=== PATIENT | male | born 1990 | race Caucasian/White ===

== ENCOUNTER 2018-10-01 21:15 | Emergency (ER) | payer SELFPAY ==
[~2018-10-01] VITALS: Ht 182.9 cm; Wt 88.5 kg
[~2018-10-01 21:15] MED LIST: VALIUM10 MG PO; XANAX0.5 MG PO
--- OUTSIDE RECORDS SUMMARY | 2018-10-01 21:18 | XMS ---
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 Natali has no Care Guidelines for this patient. EMyah VISIT COUNT (12 MO.) 2 [facility] TOTAL 2 NOTE: Visits indicate total known visits. ED/UCC VISIT TRACKING (12 MO.) [facility] COMPLAINT: - MEDICAL CLEARANCE 06/23/2018 16:[address] [facility] [place] TYPE: Emergency COMPLAINT: - MEDICAL CLEARANCE DIAGNOSES: - Nicotine dependence, unspecified, uncomplicated - Suicidal ideations INPATIENT VISIT TRACKING (12 MO.) No inpatient visits to display in this time frame [email or web address]
--- NOTE | 2018-10-02 07:57 | EKG ---
[facility] [address] [place] [address] Signed Normal sinus rhythm with sinus arrhythmia Normal ECG No previous ECGs available Confirmed by CHANDANA ORTIZ MD ([id number]) on 10/02/2018 7:57:37 AM Electronically Signed By: CHANDANA ORTIZ MD 10/02/18 0757 PATIENT NAME: NAYA NEUMANN Electrocardiogram DATE OF : [birth year] PHYSICIAN: CHANDANA ORTIZ MD REPORT #: [id number] REPORT IS CONFIDENTIAL AND NOT TO BE RELEASED WITHOUT AUTHORIZATION
== END 2018-10-02 02:00 | disposition home or self-care (01) ==
LOC: ED 21:15
DX: Z00.8 Encounter for other general examination (principal); F17.200 Nicotine dependence, unspecified, uncomplicated
CPT/HCPCS: 36415; 80053; 80176; 81001; 84443; 85025; 93005; 93010; 99285-25; G0480

== ENCOUNTER 2019-03-04 00:36 | Emergency (ER) | payer SELFPAY ==
[~2019-03-04] VITALS: Ht 182.9 cm; Wt 88.5 kg
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
== END 2019-03-04 05:18 | disposition home or self-care (01) ==
LOC: ED 00:36
DX: F10.129 Alcohol abuse with intoxication, unspecified (principal); Y90.5 Blood alcohol level of 100-119 mg/100 ml; F32.9 Major depressive disorder, single episode, unspecified; F17.200 Nicotine dependence, unspecified, uncomplicated
CPT/HCPCS: 36415; 80053; 80176; 81001; 84443; 85025; 99284; G0480

== ENCOUNTER 2019-10-31 16:51 | Emergency (ER) | payer SELFPAY ==
[~2019-10-31] VITALS: Ht 182.9 cm; Wt 88.5 kg
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
== END 2019-10-31 18:05 | disposition left against medical advice (07) ==
LOC: ED 16:51
DX: S61.012A Laceration without foreign body of left thumb without damage to nail, initial encounter (principal); F10.10 Alcohol abuse, uncomplicated; F12.90 Cannabis use, unspecified, uncomplicated; F32.9 Major depressive disorder, single episode, unspecified; F17.200 Nicotine dependence, unspecified, uncomplicated; X58.XXXA Exposure to other specified factors, initial encounter
CPT/HCPCS: 12001; 73140; 90471; 90715; 99283-25

== ENCOUNTER 2019-11-06 17:50 | Emergency (ER) | payer SELFPAY ==
[~2019-11-06] VITALS: Ht 182.9 cm; Wt 95.2 kg
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
--- NOTE | 2019-11-07 12:27 | EKG ---
[facility] [address] [facility] [place] [address] Signed Sinus rhythm with premature supraventricular complexes Otherwise normal ECG When compared with ECG of 01-OCT-2018 22:37, premature supraventricular complexes are now present Vent. rate has decreased BY 36 BPM Confirmed by PENNY SUTHERLAND DO ([id number]) on 11/07/2019 12:26:42 PM Electronically Signed By: PENNY SUTHERLAND DO 11/07/19 1227 PATIENT NAME: NAYA NEUMANNO Electrocardiogram DATE OF : [birth year] PHYSICIAN: PENNY SUTHERLAND DO REPORT #: [id number] REPORT IS CONFIDENTIAL AND NOT TO BE RELEASED WITHOUT AUTHORIZATION
== END 2019-11-06 20:59 | disposition home or self-care (01) ==
LOC: ED 17:50
DX: F32.9 Major depressive disorder, single episode, unspecified (principal); F10.10 Alcohol abuse, uncomplicated; F12.90 Cannabis use, unspecified, uncomplicated; F17.200 Nicotine dependence, unspecified, uncomplicated
CPT/HCPCS: 80053; 80176; 81001; 84443; 85025; 93005; 93010; 96372; 99284-25; G0480; J2060

== ENCOUNTER 2019-12-02 17:40 | Inpatient (IN) | payer OTHER ==
[~2019-12-02] VITALS: Ht 182.9 cm; Wt 95.2 kg
--- OUTSIDE RECORDS SUMMARY | 2019-12-02 17:42 | XMS ---
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 Details: AMA Elopement at [facility] 06/23/2018 16:53 - Other Details: PATIENT LEFT AMA CRITERIA MET - Group Notification - [facility] - Has Care Guidelines - [facility] - 2 Visits in 30 Days CARE PROVIDERS There are no care providers on record at this time. Natali has no Care Guidelines for this patient. Care History Medical/Surgical 03/04/2019 [facility] - IF PATIENT IS SEEN IN THE ED- WOULD LIKE HELP/SERVICES FOR ALCOHOL INTOXICATION. - PLEASE REQUEST IF PATIENT IS OKAY WITH [facility] TO COME AND DO AN ASSESSMENT FOR SERVICES. (THEY WILL DO AN ASSESSMENT IN THE ED) - [facility] CONTACT # [phone]. - PLEASE CONTACT [facility] AT [phone]. E.D. VISIT COUNT (12 MO.) 5 [facility]. TOTAL 5 NOTE: Visits indicate total known visits. ED/UCC VISIT TRACKING (12 MO.) 12/02/2019 17:40 [facility] [place] TYPE: Emergency COMPLAINT: - ALOC 11/06/2019 17:51 [facility] [place] TYPE: Emergency COMPLAINT: - MEDICAL CLEARANCE DIAGNOSES: - Cannabis use, unspecified, uncomplicated - Alcohol abuse, uncomplicated - Major depressive disorder, single episode, unspecified - Major depressive disorder, single episode, unspecified - Nicotine dependence, unspecified, uncomplicated 10/31/2019 16:52 [facility] [place] TYPE: Emergency [...] visits to display in this time frame [id number]
--- NOTE | 2019-12-02 21:00 | NUR ---
Patient arrives to unit via stretcher. Ventilator in place. Vent settings at 21% FiO2, VT: 510, PEEP: 8.0. ET tube measured at 26 cm at the teeth. NG tube and umaña catheter in place. Patient sedated. Transferred to hospital bed with nursing staff, patient's lines and ET tube protected by staff. Vitals taken, assessment complete. Propofol gtt infusing at 50 mcg/kg/min. Medications given (see MAR). Rass score of -2. NS bolus infusing.
--- NOTE | 2019-12-02 22:15 | NUR ---
Patient sedated in bed, ventilator in place. RASS of -3. Propofol gtt at 60mcg/kg/min. BP of 87/44 (55), HR 130. Propofol gtt titrated to 50mcg/kg/min. BP now 93/51 (61), HR 130. IV fluids running at 200 mls/hr.
--- NOTE | 2019-12-03 | NUR ---
RT in room with patient. ET tube ramirez replaced, 26 cm at the teeth. SpO2 of 98% on ventilator. Settings at FiO2 of 21%, VT: 510, PEEP: 8.0, RR of 16. Current RR of 20. Propofol gtt infusing at 50 mcg/kg/min. BP of 124/60, HR of 130. Patient restless in bed, movement in bilateral arms. Propofol gtt increased to 60 mcg/kg/min. 2mg push of versed given. Patient stops restless behavior. Restraints removed, ROM performed. Patient repositioned in bed. Restraints resumed. Oral care provided. Bloody sputum and emesis suctioned from patients airway. Cloudy urine noted draining from umaña catheter. NG tube in place, draining on LIWS.
--- NOTE | 2019-12-03 00:36 | NUR ---
Propofol gtt titrated to 45 mcg/kg/min due to BP of 90/51. HR in the 120's. SpO2 of 98% on ventilator. Settings at 21% FiO2, VT: 510, PEEP: 8.0, and ETCO2 of 33. Patient sedated, no restless activity noted. Fluids infusing at 200 mls/hr.
--- NOTE | 2019-12-03 02:00 | NUR ---
Patient restless in bed on ventilator. Settings at 21% FiO2, PEEP of 8, PIP of 19, ETCO2 of 30, SpO2 of 98%, RR of 20. Patient pulling against restraints, lifting right leg, and turning head side to side. ET tube in place, 26 cm at the teeth. 2mg push of versed given. 1405 - Patient continues to be restless. 2mg of versed given. 1415 - Patient continues to be restless. 2mg of versed given.
--- NOTE | 2019-12-03 02:30 | NUR ---
Dr. Varghese called and notified of patient's increasing restlessness. Propofol gtt at 35 mcg/kg/min. Orders acknowledged. Dr. Varghese on way to unit to assess patient.
--- NOTE | 2019-12-03 03:00 | NUR ---
Dr. Varghese in room with RT to extubate patient. Patient is extubated, all vital signs within normal limits. Patient is breathing on own, coughing and alert.
--- NOTE | 2019-12-03 03:32 | NUR ---
Patient agitated post-extubation. 2mg ativan given. Security in room talking with patient to de-escalate. Patient laying in bed having conversation with security.
--- NOTE | 2019-12-03 03:41 | NUR ---
Patient's mom in room with patient. Security in room as well. Patient agitated. Patient screaming and cursing at mother. Security talking with patient in an attempt to de-escalate.
--- NOTE | 2019-12-03 04:00 | NUR ---
PATIENT AGITATED AND YELLING LOUDING. SECURITY AND PATIENT'S MOTHER AT BEDSIDE. RN INFORMED PATIENT OF OTHER ILL PATIENT'S IN THE UNIT AND NO TOLERANCE FOR THE SCREAMING. PATIENT BECAME THRATENING TOWARD HIS MOTHER AND SECURITY PHYSICALLY HAD TO REMOVE THE PATIENT'S HANDS FROM HIS MOTHER'S ARMS. THE PATIENT TOLD THIS RN AND THE MULTIMEDIA AUTHORING SPECIALIST THAT WE ARE "AT THE TOP OF HIS SUICIDE LIST". PATIENT'S MOTHER EXPLAINED THIS IS A LIST OF REASONS OR PEOPLE TO BLAME FOR HIS SUICIDE. PATIENT THREATENS HARM TO THE MULTIMEDIA AUTHORING SPECIALIST.
--- NOTE | 2019-12-03 04:15 | NUR ---
DR. KONG NOTIFIED OF PATIENT'S SUICIDAL THOUGHTS. [employer] CALLED. ATIVAN ORDER DC'D, VALUIM ORDERED.
--- NOTE | 2019-12-03 04:30 | NUR ---
PATIENT CONTINUES TO BE AGITATED. SECURITY REMAINS AT THE BEDSIDE, DOES THE PATIENT'S MOTHER. PRN VALIUM GIVEN. PATIENT REQUEST FETANYL OR MORPHINE. PATIENT REPORTS "EXCRUCIATING" PAIN IN HIS ARMS/SHOULDERS/ETC. OFFERED THE PATIENT TYLENOL WHICH HE REFUSED. EXPLAINED RESTRICTIONS ON NARCOTICS. PATIENT IS NOT UNDERSTANDING AND USING VULGAR LANGUAGE TOWARDS STAFF.
--- NOTE | 2019-12-03 05:31 | NUR ---
[facility] IN TO SEE PATIENT
--- NOTE | 2019-12-03 06:02 | NUR ---
MARIE REQUESTING HIS MOTHER BE IN ROM FOR EVALUATION, [facility] STAFF KRISTY STATES ASSESSMENT NEEDS TO BE WITHOUT HIS MOTHER. PATIENT IS DISTRAUGHT. PATIENT'S MOTHER LEAVING TO GO HOME AND RETURN WHEN ASSESSMENT IS OVER.
--- NOTE | 2019-12-03 06:47 | NUR ---
PATIENT UP OUT OF BED. BEDDING CHANGED. PATIENT PROVIDED WITH PRN VALIUM FOR ONGOING ANXIETY. DISCUSSED PATIENT'S HOLD FROM [employer] WITH . NEW ORDERS RECEIVED. VERIFY VIA REPEAT BACK.
--- NOTE | 2019-12-03 06:53 | NUR ---
PATIENT MORE CALM, DISCUSSING MENTAL HEALTH TREATMENT WITH FRANCIS AND HIS MOTHER.
--- NOTE | 2019-12-03 07:30 | NUR ---
Consult request by Rn from [facility]. He is on a [employer] hold and was intubated last night and then extubated during the night. Pt states he drank most of a bottle of whisky and lost several hours. Woke up intubated and felt he could not breath. Denies suicidal ideation. States he has been drinking for a long period. Does not want assist with finding a pcp or getting on the OHP. Did agree tp Peer to Peer support from [facility] as his friend is currently taking class with them. Informed I will contact [facility] for Peer to Peer support to call or see him. Pt agreees to this. NOtified by Rn after I returned to my office pt would like assistance with OHP. Called and spoke with Brandie and she will assist pt.
--- NOTE | 2019-12-03 07:45 | NUR ---
REPORT RECEIVED FROM DANY HERNANDEZ. PT UP TO EDGE OF BED TO USE URINAL. MOTHER AND FORMING FIXER AT BEDSIDE. 1:1 MONITORING CONTINUES.
--- NOTE | 2019-12-03 08:10 | NUR ---
MORNING ASSESSMENT DUE. PT RESTING IN BED. PT CALM AND COOPERATIVE WITH CARES. PT ANSWERING QUESTIONS AT THIS TIME. PT REPORTS 9/10 PAIN "EVERYWHERE." PT REPORTS "I CAN USUALLY DRINK A WHOLE BOTTLE OF ALCOHOL AND THIS DOESN'T HAPPEN." "USUALLY I'M A HAPPY DRUNK. 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 I WRITE IT AND HE SENDS ME $600." CASE MANAGEMENT TO BEDSIDE TO VISIT WITH PT. PT ANSWERING QUESTIONS COOPERATIVELY.
--- NOTE | 2019-12-03 08:52 | NUR ---
PT REQUESTS "THAT MEDICATION IN MY IV." PT RESTLESS AND CONTINUES TO HAVE DILUSIONAL THINKING. SEE MAR FOR MEDICATION GIVEN. PT AGREES TO TALK WITH CASE MANAGEMENT ABOUT OHP. CASE MANAGMENT CALLED. MOTHER AND SECURITY AT BEDSIDE. PT REMAINS 1:1 OBSERVATION.
--- NOTE | 2019-12-03 09:00 | NUR ---
PUMP ALARMING, INFUSION COMPLETE. IV SALINE LOCKED PER MD ORDER. SECURITY AT BEDSIDE. NO ADDITIONAL REQUESTS OR COMPLAINTS AT THIS TIME.
--- NOTE | 2019-12-03 09:06 | NUR ---
BREAKFAST ARRIVED. PT SITTING ON EDGE OF BED. [employer] PAPERWORK GIVEN TO FOR REVIEW, SIGNED, AND FAXED TO [employer]. PT VISITING WITH HIS MOTHER, COOPERATIVE AT THIS TIME.
--- NOTE | 2019-12-03 10:00 | NUR ---
PT RESTING IN BED TALKING WITH THREAD MACHINE OPERATOR. COOPERATIVE AT THIS TIME.CALL LIGHT WITHIN REACH. NO ADDITIONAL REQUESTS OR COMPLAINTS.
--- NOTE | 2019-12-03 10:48 | NUR ---
PT REQUESTS TO TALK TO HIS NURSE. THIS RN TO BEDSIDE. PT REPORTS "PAIN EVERYWHERE." PT RATES PAIN AT 9/10. PT REPORTS "I JUST WANT TO FEEL SAD RIGHT NOW BECAUSE I SAID DISCUSTING VIAL THINGS TO WOMEN LAST NIGHT." PT ANXIOUS AND RESTLESS. PT STATES "I THINK THIS PLACE MIGHT BE HAUNTED." PT DENIES SEEING THINGS OR FEELING FORIGN SENSATIONS. VITALS TAKEN. PT REMAINS 1:1 WITH CARES AT THIS TIME. SEE MAR FOR MEDICATION GIVEN. BED RAILS UP. SECURITEY AT BEDSIDE.
--- NOTE | 2019-12-03 11:09 | EKG ---
[facility] [address] [place] [address] Signed Poor data quality, interpretation may be adversely affected Sinus tachycardia Abnormal ECG When compared with ECG of 06-NOV-2019 18:11, Vent. rate has increased BY 44 BPM Confirmed by GABRIELLE KONG MD ([id number]) on 12/03/2019 11:09:40 AM Electronically Signed By: GABRIELLE KONG MD 12/03/19 1109 PATIENT NAME: NAYA NEUMANN Electrocardiogram DATE OF : [birth year] PHYSICIAN: GABRIELLE KONG MD REPORT #: [id number] REPORT IS CONFIDENTIAL AND NOT TO BE RELEASED WITHOUT AUTHORIZATION
--- NOTE | 2019-12-03 12:11 | NUR ---
NOON ASSESSMENT DUE. PT REPORTS 9/10 PAIN "EVERYWHERE, LIKE MY BACK AND HEAD." PT ASKED WHAT INTERVENTIONS NORMALLY HELP HIS PAIN. PT STATES "WELL TELL ME WHAT YOU WILL GIVE ME AND I'LL SEE." PT OFFERED TYLENOL. PT DECLINES. PT ENCOURAGED TO GET UP TO CHAIR. SBA UP TO CHAIR. PT RESTLESS, GETS UP AND IS REMAING HIS BED. ASSESSMENT DONE. LUNG SOUNDS CLEAR. PT DENIES NAUSEA. CIWA SCORE OF 13. PT CONTINUES TO HAVE DILUSIONAL THINKING BUT IS COOPERATIVE WITH CARES AT THIS TIME. PT SITS DOWN WITH INSTRUCTION, PT EATING LUNCH. NO ADDITIONAL REQUESTS OR COMPLAINTS AT THIS TIME. CALL LIGHT WITHIN REACH.
--- NOTE | 2019-12-03 12:59 | NUR ---
MEDICATION DUE. PT TALKING WITH SALES SUPPORT REP. MEDICATION GIVEN. VALIUM NOTED TO BE SWITCHED TO PO MEDICATION, IV FORM OF MEDICATION STILL ON EMAR. PHARMACIST CALLED, ORDER RESOLVED. MEDICATION GIVEN. WATER PROVIDED FOR PT. NO ADDITIONAL REQUESTS OR COMPLAINTS. CALL LIGHT WITHIN REACH.
--- NOTE | 2019-12-03 13:30 | NUR ---
[facility] TO BEDSIDE TO MEET WITH PT.
--- NOTE | 2019-12-03 13:30 | NUR ---
[facility] IN ROOM WITH PT
--- NOTE | 2019-12-03 13:48 | NUR ---
[facility] AGENTJOHNATHAN, STATES PT NO LONGER NEEDS TO BE ON HOLD OR A CUSTODY. DR. KONG CALLED AND UPDATED. PT NO LONGER ON 1:1 OBSERVATION OR CARES. PT DENIES ADDITIONAL REQUESTS OR COMPLAINTS. CALL LIGHT WITHIN REACH.
--- NOTE | 2019-12-03 14:09 | NUR ---
MED REC COMPLETE
--- NOTE | 2019-12-03 14:21 | NUR ---
PT READY FOR DISCHARGE. FINISHED TALKING WITH REPRISENTITIVE FROM [employer]. VITALS TAKEN. DISCHRAGE INSTRUCTIONS REVEIWED WITH PT AND MOTHER PT VERBALIZES UNDERSTANDING AND STATES HIS QUESTIONS HAVE BEEN ANSWERED. PT VERBALIZES UNDERSTANDING OF DISCHRAGE INSTRUCTIONS AND FOLLOW UP. DRESSES SELF. PT STEADY ON FEET. PT AMBULATED FROM CCU WITH MARY, COMMUNICATIONS PROFESSIONAL AND MOTHER. NO ADDITIONAL REQUESTS OR CONCERNS AT THIS TIME.
== END 2019-12-03 14:45 | disposition home or self-care (01) | DRG 208 ==
LOC: ED 17:40 → CCU 20:27
PROVIDERS: ADMIT Internal Medicine
PROC: 0BH17EZ Insertion of Endotracheal Airway into Trachea, Via Natural or Artificial Opening (ICD-10-PCS; principal; 2019-12-02)
PROC: 5A1935Z Respiratory Ventilation, Less than 24 Consecutive Hours (ICD-10-PCS; 2019-12-02)
DX: J96.01 Acute respiratory failure with hypoxia (principal); F10.121 Alcohol abuse with intoxication delirium; F32.2 Major depressive disorder, single episode, severe without psychotic features; F10.180 Alcohol abuse with alcohol-induced anxiety disorder; F17.200 Nicotine dependence, unspecified, uncomplicated; E87.6 Hypokalemia; R40.2432 Glasgow coma scale score 3-8, at arrival to emergency department
CPT/HCPCS: 36415; 36600; 51702; 70450; 71045; 80048; 80053; 80176; 81001; 82803; 83735; 84443; 85025; 93005; 93010; 94002; 94003; 99285-25; C9113; C9803; G0480; J1650; J2060; J2250; J2704; J3360; J3480; J7030; J7120; U0002

== ENCOUNTER 2020-03-22 10:19 | Emergency (ER) | payer OTHER ==
[~2020-03-22] VITALS: Ht 182.9 cm; Wt 95.2 kg
--- OUTSIDE RECORDS SUMMARY | 2020-03-22 10:22 | XMS ---
PreManage Notification: NAYA NEUMANN Security Interventional Radiologist Events 1 event(s) in the past 18 months Most recent security events: Elopement at [facility] 10/31/2019 16:52 - Patient eloped before treatment completed. Details: AMA CRITERIA MET - Group Notification - [facility] - Has Care Guidelines CARE PROVIDERS There are no care providers on record at this time. Natali has no Care Guidelines for this patient. Care History Medical/Surgical 03/04/2019 [facility] - IF PATIENT IS SEEN IN THE ED- WOULD LIKE HELP/SERVICES FOR ALCOHOL INTOXICATION. - PLEASE REQUEST IF PATIENT IS OKAY WITH [facility] TO COME AND DO AN ASSESSMENT FOR SERVICES. (THEY WILL DO AN ASSESSMENT IN THE ED) - [facility] CONTACT # [phone]. - PLEASE CONTACT [facility] AT [phone]. E.D. VISIT COUNT (12 MO.) 4 [facility]. TOTAL 4 NOTE: Visits indicate total known visits. ED/UCC VISIT TRACKING (12 MO.) 03/22/2020 10:20 [facility] [place] TYPE: Emergency COMPLAINT: - L EYE PAIN 12/02/2019 17:40 [facility] [place] TYPE: Emergency [...] - Major depressive disorder, single episode, unspecified INPATIENT VISIT TRACKING (12 MO.) 12/02/2019 20:[address] [facility] [place] TYPE: Critical Care COMPLAINT: - RESPIRATORY FAILURE DIAGNOSES: - Manlius coma scale score 3-8, at arrival to emergency departm - Acute respiratory failure with hypoxia - Alcohol abuse with intoxication delirium - Major depressive disorder, single episode, severe without psy - Hypokalemia - Alcohol abuse with alcohol-induced anxiety disorder - Nicotine dependence, unspecified, uncomplicated [email or web address]
[2020-03-22] MEDS ORDERED: GENTAK3.5 GM OPTH (10:36)
[2020-03-22] MEDS ORDERED: ACETAMINOPHEN-1 EAC1 PO (11:21)
[2020-03-22] MEDS ORDERED: KEFLEX500 MG PO (11:21)
[2020-03-22] MEDS ORDERED: AUGMENTIN 875-1 EACH PO (13:54)
[2020-03-22] MEDS ORDERED: NORCO 7.5-3251 EACH PO (13:54)
[2020-03-22] MEDS ORDERED: CLEOCIN HCL300 MG PO (13:54)
== END 2020-03-22 14:20 | disposition home or self-care (01) ==
LOC: ED 10:19
DX: L03.213 Periorbital cellulitis (principal); F32.9 Major depressive disorder, single episode, unspecified; F17.200 Nicotine dependence, unspecified, uncomplicated; Z79.899 Other long term (current) drug therapy
CPT/HCPCS: 70487; 85025; 96374; 96375; 96376; 99284-25; A9270; J1170; J1885; J3490; Q9967

== ENCOUNTER 2020-09-19 18:05 | Emergency (ER) | payer OTHER ==
[~2020-09-19] VITALS: Ht 182.9 cm; Wt 95.3 kg
[~2020-09-19 18:05] MED LIST changes: +ACETAMINOPHEN-1 EAC1 PO; +AUGMENTIN 875-1 EACH PO; +CLEOCIN HCL300 MG PO; +GENTAK3.5 GM OPTH; +KEFLEX500 MG PO; +NORCO 7.5-3251 EACH PO
--- OUTSIDE RECORDS SUMMARY | 2020-09-19 18:08 | XMS ---
PreManage Notification: NAYA NEUMANN Security [employer] Receiver Events 1 event(s) in the past 18 months Most recent security events: Elopement at [facility] 10/31/2019 16:52 - Patient eloped before treatment completed. Details: AMA CRITERIA MET - Group Notification - PDMP CARE PROVIDERS There are no care providers on record at this time. Natali has no Care Guidelines for this patient. Care History Medical/Surgical 03/04/2019 [facility] - IF PATIENT IS SEEN IN THE ED- WOULD LIKE HELP/SERVICES FOR ALCOHOL INTOXICATION. - PLEASE REQUEST IF PATIENT IS OKAY WITH [facility] TO COME AND DO AN ASSESSMENT FOR SERVICES. (THEY WILL DO AN ASSESSMENT IN THE ED) - [facility] CONTACT # [phone]. - PLEASE CONTACT [facility] AT [phone]. E.D. VISIT COUNT (12 MO.) 5 [facility] TOTAL 5 NOTE: Visits indicate total known visits. ED/C VISIT TRACKING (12 MO.) 09/19/2020 18:05 [facility] TYPE: Emergency COMPLAINT: - HAND PAIN 03/22/2020 10:20 [facility] TYPE: Emergency COMPLAINT: - L EYE PAIN/NO INJ DIAGNOSES: - Major depressive disorder, single episode, unspecified - Other long term acute care registered nurse (current) drug therapy - Nicotine dependence, unspecified, uncomplicated - Periorbital cellulitis - Ocular pain, left eye 12/02/2019 17:40 [facility] TYPE: Emergency [...] foreign body of left thumb without damage to nail, initial encounter - Cannabis use, unspecified, uncomplicated - Exposure to other specified factors, initial encounter - Alcohol abuse, uncomplicated - Nicotine dependence, unspecified, uncomplicated - Major depressive disorder, single episode, unspecified INPATIENT VISIT TRACKING (12 MO.) 12/02/2019 20:27 [facility] TYPE: Critical Care COMPLAINT: - RESPIRATORY FAILURE DIAGNOSES: - Elizabeth coma scale score 3-8, at arrival to emergency department - Acute respiratory failure with hypoxia - Alcohol abuse with intoxication delirium - Major depressive disorder, single episode, severe without psychotic features - Hypokalemia - Alcohol abuse with alcohol-induced anxiety disorder - Nicotine dependence, unspecified, uncomplicated [email or web address]
[2020-09-19] MEDS ORDERED: ESCITALOPRAM OX10 MG PO (18:14)
[2020-09-19] MEDS ORDERED: VENLAFAXINE HC225 MG PO (18:14)
[2020-09-19] MEDS ORDERED: LORAZEPAM1 MG PO (18:14)
[2020-09-19] MEDS ORDERED: QUETIAPINE FUM100 MG PO (18:14)
[2020-09-19] MEDS ORDERED: TRAZODONE HCL100 MG PO (18:14)
== END 2020-09-19 20:16 | disposition left against medical advice (07) ==
LOC: ED 18:05
DX: M79.641 Pain in right hand (principal); M79.642 Pain in left hand; Z53.21 Procedure and treatment not carried out due to patient leaving prior to being seen by health care provider; Z79.899 Other long term (current) drug therapy
CPT/HCPCS: 72050; 80048; 83735; 85025; 99283-25

== ENCOUNTER 2023-04-12 17:35 | Emergency (ER) | payer OTHER ==
[~2023-04-12] VITALS: Ht 182.9 cm; Wt 95.7 kg
[~2023-04-12 17:35] MED LIST changes: +ESCITALOPRAM OX10 MG PO; +LORAZEPAM1 MG PO; +QUETIAPINE FUM100 MG PO; +TRAZODONE HCL100 MG PO; +VENLAFAXINE HC225 MG PO
--- OUTSIDE RECORDS SUMMARY | 2023-04-12 17:36 | XMS ---
PreManage Notification: NAYA NEUMANN Security Manager Business Intelligence Events No recent Security Events currently on file CRITERIA MET - Group Notification CARE PROVIDERS -, [place]- Dentist: Retail Advertising Executive [facility] PHONE: [phone] Natali has no Care Guidelines for this patient. Care History Medical/Surgical 03/04/2019 [facility] [place] - IF PATIENT IS SEEN IN THE ED- WOULD LIKE HELP/SERVICES FOR ALCOHOL INTOXICATION. - PLEASE REQUEST IF PATIENT IS OKAY WITH [facility] TO COME AND DO AN ASSESSMENT FOR SERVICES. (THEY WILL DO AN ASSESSMENT IN THE ED) - [facility] CONTACT # [phone]. - PLEASE CONTACT [facility] AT [phone]. E.D. VISIT COUNT (12 MO.) 2 [facility] TOTAL 2 NOTE: Visits indicate total known visits. ED/UCC VISIT TRACKING (12 MO.) 04/12/2023 17:35 [facility] TYPE: Emergency COMPLAINT: - EYE PROBLEM 01/25/2023 05:26 [facility] TYPE: Emergency COMPLAINT: - BOTH KNEES PAIN DIAGNOSES: - Other shelter (current) drug therapy - Pain in left knee - Pain in right knee INPATIENT VISIT TRACKING (12 MO.) No inpatient visits to display in this time frame [email or web address]
[2023-04-12] MEDS ORDERED: HYDROCODON-ACE1 EA11 PO (18:48)
[2023-04-12 18:52] VITALS: BP 144/97
== END 2023-04-12 18:52 | disposition home or self-care (01) ==
LOC: ED 17:35
DX: S05.02XA Injury of conjunctiva and corneal abrasion without foreign body, left eye, initial encounter (principal); H00.014 Hordeolum externum left upper eyelid; X58.XXXA Exposure to other specified factors, initial encounter
CPT/HCPCS: 99283; A9270

== ENCOUNTER 2024-12-09 09:59 | Emergency (ER) | payer OTHER ==
[~2024-12-09] VITALS: Ht 182.9 cm; Wt 93.3 kg
[~2024-12-09 09:59] MED LIST changes: +HYDROCODON-ACE1 EA11 PO
[2024-12-09 11:28] LABS: BASOPHILS 0.3 % (0.2-1.2); EOSINOPHILS 0 % (0.8-7.0); HEMATOCRIT 43.8 % (40.1-51.0); HEMOGLOBIN 15.4 g/dL (13.7-17.5); LYMPHOCYTES 4.8 % (21.8-53.1); MCH 32.6 PG (25.7-32.2); MCHC 35.2 g/dL (32.3-36.5); MCV 92.6 fL (79.0-92.2); MONOCYTES 7.5 % (5.3-12.2); NEUTROPHILS 85.5 % (34.0-67.9); PLATELET COUNT 357 K/uL (163-337); RBC 4.73 M/uL (4.63-6.08)
[2024-12-09] MEDS ORDERED: ondansetron HCL 4 MG/2 ML VIAL IV ONE ×2 (11:30→14:00)
[2024-12-09] MEDS ORDERED: PIPERACILLIN/TAZOBACTAM 4.5 GM in SODIUM CHLORIDE 0.9% 100 ML IV ONE (11:30)
[2024-12-09] MEDS ORDERED: HYDROmorphone HCL 1 MG/ML SYR IV PRN ×2 (11:30→16:00)
[2024-12-09] MEDS ORDERED: SODIUM CHLORIDE 0.9% 500 ML IV ONE (11:30)
[2024-12-09 11:39] LABS: ALBUMIN 3.2 g/dL (3.4-5.0); ALBUMIN/GLOBULIN RATIO 0.68 (1.1-2.4); ANION GAP 16.6 (7-21); BILIRUBIN, TOTAL 1.7 mg/dL (0.2-1.0); BUN/CREATININE RATIO 8.73 (6.0-28.6); CALCIUM 9.3 mg/dL (8.5-10.1); CREATININE, SERUM 1.03 mg/dL (0.70-1.30); POTASSIUM 3.6 mmol/L (3.5-5.1); PROTEIN, TOTAL 7.9 g/dL (6.4-8.2)
[2024-12-09 13:03] LABS: AMPHETAMINES, URINE NEGATIVE (NEGATIVE); BARBITURATES, URINE NEGATIVE (NEGATIVE); BENZODIAZEPINE, URINE NEGATIVE (NEGATIVE); BUPRENORPHINE, URINE NEGATIVE (NEGATIVE); CANNABINOID, URINE POSITIVE (NEGATIVE); COCAINE, URINE NEGATIVE (NEGATIVE); ECSTASY, URINE POSITIVE (NEGATIVE); FENTANYL, URINE NEGATIVE (NEGATIVE); METHADONE, URINE NEGATIVE (NEGATIVE); OPIATES, URINE POSITIVE (NEGATIVE); OXYCODONE, URINE NEGATIVE (NEGATIVE); PHENCYCLIDINE, URINE NEGATIVE (NEGATIVE)
[2024-12-09] MEDS ORDERED: diphenhydrAMINE HCL 50 MG/ML VIAL IV ONE (14:45)
[2024-12-09] MEDS ORDERED: SODIUM CHLORIDE 0.9% 500 ML IV PRN (15:45)
[2024-12-09] MEDS ORDERED: droPERidol 5 MG/2 ML VIAL IV ONE (16:00)
[2024-12-09] MEDS ORDERED: HYDROmorphone HCL 1 MG/ML SYR IV ONE (18:30)
[2024-12-09] MEDS ORDERED: ACETAMINOPHEN 500 MG TAB PO ONE (20:00)
[2024-12-09 20:05] VITALS: BP 155/101
== END 2024-12-09 20:05 | disposition short-term general hospital (02) ==
LOC: ED 09:59
PROVIDERS: Emergency Medicine
DX: L02.512 Cutaneous abscess of left hand (principal); Z79.899 Other long term (current) drug therapy; F19.90 Other psychoactive substance use, unspecified, uncomplicated
CPT/HCPCS: 36415; 80053; 80307; 83605; 85025; 85060; 87040; 87070; 87075; 87186; 87205; 99284-25; A9270; J1171; J1200; J1790; J2405; J2543; J7040; Q9967